=== PATIENT | female | born 1960 | race Caucasian/White ===

== ENCOUNTER 2016-05-31 19:58 | Emergency (ER) | payer OTHER | END 2016-05-31 21:10 | disposition home or self-care (01) | LOC: ER 19:58 | DX: M54.5 Low back pain (principal); G89.29 Other chronic pain; I10 Essential (primary) hypertension; F17.210 Nicotine dependence, cigarettes, uncomplicated; Z98.51 Tubal ligation status; Z88.5 Allergy status to narcotic agent | CPT/HCPCS: 96372; J1885 ==